=== PATIENT | male | born 1950 | race Caucasian/White ===

== ENCOUNTER 2022-09-20 06:02 | Inpatient (IN) | payer OTHER, BC ==
[2022-09-18 11:58] VITALS: BMI 22.1
[2022-09-20] MEDS ORDERED: KETOROLAC TROMETHAMINE 30 MG/1 ML VIAL ONE (07:00)
[2022-09-20] MEDS ORDERED: ONDANSETRON 4 MG/2 ML VIAL ONE (07:00)
[2022-09-20] MEDS ORDERED: DEXAMETHASONE SOD PHOSPHATE 4 MG/1 ML VIAL ONE (07:00)
[2022-09-20] MEDS ORDERED: ceFAZolin SODIUM 1 GM VIAL ONE ×2 (07:00→09:07)
[2022-09-20] MEDS ORDERED: MIDAZOLAM HCL 2 MG/2 ML SINGLE DOSE VIAL ONE (07:01)
[2022-09-20] MEDS ORDERED: SUCCINYLCHOLINE CHLORIDE 200 MG/10 ML SYRINGE ONE (07:01)
[2022-09-20] MEDS ORDERED: PROPOFOL 60 ML ONE (07:01)
[2022-09-20] MEDS ORDERED: DEXAMETHASONE SOD PHOSPHATE/PF 10 MG/ML SDV ONE (07:17)
[2022-09-20] MEDS ORDERED: BUPIVACAINE HCL 50 ML ONE (07:17)
[2022-09-20] MEDS ORDERED: BUPIVACAINE HCL/PF 2.5 MG/ML - 30 ML VIAL IJ ONE (07:17)
[2022-09-20] MEDS ORDERED: ACETAMINOPHEN INJECTION 100 ML IVPB ONE (07:18)
[2022-09-20] MEDS ORDERED: BUPIVACAINE HCL/PF 0.5% (5 MG/ML) 30 ML VIAL IJ ONE (07:21)
[2022-09-20] MEDS ORDERED: BUPIVACAINE LIPOSOME/PF (EXPAREL) 266 MG/20 ML VIAL ONE (07:21)
[2022-09-20] MEDS ORDERED: oxyCODONE HCL 5 MG TABLET PO PRN ×2 (07:47→13:47)
[2022-09-20] MEDS ORDERED: ONDANSETRON 4 MG/2 ML VIAL IVPUSH PRN ×2 (07:47→12:28)
[2022-09-20] MEDS ORDERED: LACTATED RINGERS SOLUTION 1,000 ML IV SCH ×2 (08:00→12:30)
[2022-09-20] MEDS ORDERED: TRANEXAMIC ACID 1000 MG/10 ML VIAL ONE ×2 (09:07→11:39)
[2022-09-20] MEDS ORDERED: VANCOMYCIN 1,000 MG VIAL (RESTRICTED TO ID ONLY) ONE (09:07)
[2022-09-20] MEDS ORDERED: PROPOFOL 20 ML ONE ×3 (09:26→11:21)
[2022-09-20] MEDS ORDERED: THROMBIN (BOVINE) 5,000 UNIT VIAL TP ONE ×2 (10:10→10:13)
[2022-09-20] MEDS ORDERED: MAGNESIUM HYDROX 2400MG/30ML ORAL SUSPENSION 30 ML CUP PO PRN (12:28)
[2022-09-20] MEDS ORDERED: MAG HYDROX/AL HYDROX/SIMETH 30 ML UNIT-DOSE CUP PO PRN (12:28)
[2022-09-20] MEDS: CEFAZOLIN SODIUM 2 GM in DEXTROSE 5%-WATER 100 ML IVPB SCH (17:37)
[2022-09-20] MEDS ORDERED: PATIENT'S OWN MEDICATION (NON-FORMULARY) (Eszopiclone [Lunesta] 3 MG Tablet) PO SCH (22:00)
[2022-09-20] MEDS: ASPIRIN COATED 81 MG TABLET.EC PO SCH (22:44)
[2022-09-20] MEDS: SENNOSIDES/DOCUSATE COMBO (SENNA PLUS) TABLET (UD) PO SCH (22:44)
[2022-09-20] MEDS: CELECOXIB 100 MG CAPSULE PO SCH (22:44)
[2022-09-20] MEDS: MELATONIN 5 MG TABLETS PO PRN (22:45)
[2022-09-20] MEDS: ACETAMINOPHEN 1000 MG/100 ML BAG IVPB PRN (23:03)
[2022-09-21] MEDS: CEFAZOLIN SODIUM 2 GM in DEXTROSE 5%-WATER 100 ML IVPB SCH ×2 (01:13→19:51)
[2022-09-21] MEDS ORDERED: METHADONE HCL PO SCH ×2 (06:00)
[2022-09-21] MEDS ORDERED: [UNRECOGNIZED DRUG - OTHER] PO SCH ×2 (06:00)
[2022-09-21] MEDS ORDERED: methaDONE HCL 10 MG TABLET PO SCH (06:00)
[2022-09-21] MEDS: ACETAMINOPHEN 1000 MG/100 ML BAG IVPB PRN ×3 (07:37→19:35)
[2022-09-21 08:33] LABS: CALCIUM 8.5 mg/dl (8.5-10); CREATININE 0.7 mg/dl (0.55-1.3)
[2022-09-21 08:46] LABS: HEMATOCRIT 37.2 % (35.4-49); HEMOGLOBIN 12.4 G/dL (11.7-16.9); MCH 30.2 pg (25.7-33.7); MCHC 33.3 g/dl (32.0-35.9); MEAN CELL VOLUME 90.7 fl (80-96); MEAN PLT VOLUME 9.2 fl (7.5-11.1); PLATELET COUNT 154.5 10^3/uL (134-434); RDW 13.9 % (11.9-15.9); WHITE BLOOD COUNT 8.3 10^3/uL (4.0-10.8)
[2022-09-21] MEDS: SENNOSIDES/DOCUSATE COMBO (SENNA PLUS) TABLET (UD) PO SCH ×2 (09:03→21:04)
[2022-09-21] MEDS: CELECOXIB 100 MG CAPSULE PO SCH ×2 (09:03→21:04)
[2022-09-21] MEDS: ASPIRIN COATED 81 MG TABLET.EC PO SCH ×2 (09:03→21:04)
[2022-09-21] MEDS: PANTOPRAZOLE 40 MG TABLET PO SCH (09:03)
[2022-09-21] MEDS: CHOLECALCIFEROL (VIT D3 5000 UNITS) 125 MCG TAB PO SCH (09:04)
[2022-09-21] MEDS: MELATONIN 5 MG TABLETS PO PRN (21:04)
[2022-09-22 02:21] VITALS: RESP 18
[2022-09-22] MEDS ORDERED: ACETAMINOPHEN 1000 MG/100 ML BAG IVPB PRN (05:24)
[2022-09-22] MEDS ORDERED: METHADONE HCL PO SCH ×2 (06:00)
[2022-09-22] MEDS ORDERED: methaDONE HCL 10 MG TABLET PO SCH (06:00)
[2022-09-22] MEDS ORDERED: [UNRECOGNIZED DRUG - OTHER] PO SCH ×2 (06:00)
[2022-09-22 08:01] LABS: HEMATOCRIT 37.4 % (35.4-49); HEMOGLOBIN 12.5 G/dL (11.7-16.9); MCH 30.4 pg (25.7-33.7); MCHC 33.4 g/dl (32.0-35.9); MEAN CELL VOLUME 90.9 fl (80-96); PLATELET COUNT 160.9 10^3/uL (134-434); RBC 4.11 10^6/uL (4.00-5.60); RDW 13.7 % (11.9-15.9); WHITE BLOOD COUNT 7.9 10^3/uL (4.0-10.8)
[2022-09-22 08:52] LABS: ALBUMIN 3.6 g/dl (3.4-5.0); BILIRUBIN,TOTAL 0.8 mg/dl (0.2-1); CALCIUM 8.7 mg/dl (8.5-10); CREATININE 0.6 mg/dl (0.55-1.3); TOT PROT 6.6 g/dl (6.4-8.2)
[2022-09-22] MEDS: SENNOSIDES/DOCUSATE COMBO (SENNA PLUS) TABLET (UD) PO SCH (09:16)
[2022-09-22 09:25] VITALS: BP 94/53; PULSE 64; TEMP 98
[2022-09-22] MEDS: CELECOXIB 100 MG CAPSULE PO SCH (09:26)
[2022-09-22] MEDS: ASPIRIN COATED 81 MG TABLET.EC PO SCH (09:26)
[2022-09-22] MEDS: CHOLECALCIFEROL (VIT D3 5000 UNITS) 125 MCG TAB PO SCH (09:26)
[2022-09-22] MEDS: PANTOPRAZOLE 40 MG TABLET PO SCH (09:26)
== END 2022-09-22 14:08 | disposition home or self-care (01) | DRG 470 ==
LOC: FM/S 06:02
PROVIDERS: ADMIT Orthopaedic Surgery Orthopaedic Surgery of the Spine; ATTEND Orthopaedic Surgery Orthopaedic Surgery of the Spine
PROC: 0SRC0JZ Replacement of Right Knee Joint with Synthetic Substitute, Open Approach (ICD-10-PCS; principal; 2022-09-20 09:50)
DX: M17.11 Unilateral primary osteoarthritis, right knee (principal); F11.20 Opioid dependence, uncomplicated; I10 Essential (primary) hypertension; E78.5 Hyperlipidemia, unspecified; F32.A Depression, unspecified; G47.00 Insomnia, unspecified; K21.9 Gastro-esophageal reflux disease without esophagitis
CPT/HCPCS: 36415; 70450-TC; 73552-TC-RT-FY; 73560-TC-RT-FY; 73590-TC-RT-FY; 73610-TC-RT-FY; 73630-TC-RT-FY; 80048; 80053; 85027; 88305-TC; 88311-TC; 94760; 97010-GP; 97116-GP; 97162-GP; 99285-25; C1713; C1776; C9803-CS; U0003; U0005